=== PATIENT | female | born 1950 | race Caucasian/White ===

== ENCOUNTER → 2023-07-21 17:03 | Outpatient (REF) | payer OTHER, SELFPAY | LOC: HWRAD 17:03 | PROVIDERS: ATTENDING PHYSICIAN Family Medicine; FAMILY PHYSICIAN Physician Assistant Medical | DX: J45.21 Mild intermittent asthma with (acute) exacerbation (principal); J01.40 Acute pansinusitis, unspecified; R05.1 Acute cough | CPT/HCPCS: 71046 ==

== ENCOUNTER → 2023-12-04 11:26 | Outpatient (REF) | payer OTHER, SELFPAY | LOC: WDC 11:26 | PROVIDERS: ATTENDING PHYSICIAN Physician Assistant Medical | DX: Z12.31 Encounter for screening mammogram for malignant neoplasm of breast (principal) | CPT/HCPCS: 77063; 77067 ==

== ENCOUNTER → 2023-12-24 11:02 | Outpatient (REF) | payer OTHER, SELFPAY | LOC: RAD 11:02 | PROVIDERS: ATTENDING PHYSICIAN Physician Assistant Medical | DX: Z78.0 Asymptomatic menopausal state (principal) | CPT/HCPCS: 77080 ==

== ENCOUNTER → 2024-05-18 12:43 | Outpatient (REF) | payer OTHER, BC, SELFPAY | LOC: WDC 12:43 | PROVIDERS: ATTENDING PHYSICIAN Physician Assistant Medical | DX: R92.2 Inconclusive mammogram (principal); R92.30 Dense breasts, unspecified | CPT/HCPCS: 76641 ==

== ENCOUNTER → 2024-08-22 10:09 | Outpatient (REF) | payer BC, SELFPAY | LOC: RAD 10:09 | PROVIDERS: ATTENDING PHYSICIAN Otolaryngology; FAMILY PHYSICIAN Physician Assistant Medical | DX: K21.9 Gastro-esophageal reflux disease without esophagitis (principal); R13.12 Dysphagia, oropharyngeal phase | CPT/HCPCS: 74221 ==

== ENCOUNTER → 2024-09-12 11:24 | Outpatient (REF) | payer OTHER, SELFPAY | LOC: RAD 11:24 | PROVIDERS: ATTENDING PHYSICIAN Family Medicine | DX: R22.41 Localized swelling, mass and lump, right lower limb (principal); M79.661 Pain in right lower leg | CPT/HCPCS: 93970 ==

== ENCOUNTER → 2024-12-06 12:41 | Outpatient (REF) | payer OTHER, SELFPAY | LOC: WDC 12:41 | PROVIDERS: ATTENDING PHYSICIAN Physician Assistant Medical | DX: Z12.31 Encounter for screening mammogram for malignant neoplasm of breast (principal) | CPT/HCPCS: 77063; 77067 ==

== ENCOUNTER → 2024-12-14 09:29 | Outpatient (REF) | payer OTHER, SELFPAY | LOC: WDC 09:29 | PROVIDERS: ATTENDING PHYSICIAN Physician Assistant Medical | DX: R92.8 Other abnormal and inconclusive findings on diagnostic imaging of breast (principal) | CPT/HCPCS: 76642 ==